=== PATIENT | female | born 1980 | race Caucasian/White ===

== ENCOUNTER 2023-04-27 15:33 | Outpatient (CLI) | payer BC, SELFPAY | END 2023-04-27 15:34 | disposition home or self-care (01) | LOC: NFLDREF 05-10 07:10 | PROVIDERS: PCP Nurse Practitioner Family; Referring Provider Nurse Practitioner Family; Visit Provider Nurse Practitioner Family | DX: E55.9 Vitamin D deficiency, unspecified (principal); R20.2 Paresthesia of skin; Z13.0 Encounter for screening for diseases of the blood and blood-forming organs and certain disorders involving the immune mechanism | CPT/HCPCS: 80053; 82306; 84443; 85025; 85651; 86039; 86140; 86618; 86812 ==

== ENCOUNTER 2023-05-17 06:29 | Outpatient (CLI) | payer BC, SELFPAY ==
--- NOTE | 2023-05-17 08:02 | W.ANESCHARGE ---
Anesthesia Charges Start Date/Time Anesthesia Start Date: 05/17/23 Anesthesia Start Time: 07:30 Stop Date/Time Anesthesia Stop Date: 05/17/23 Anesthesia Stop Time: 08:00
== END 2023-05-17 06:30 | disposition home or self-care (01) ==
LOC: OP CLINIC 06:29
PROVIDERS: PCP Nurse Practitioner Family; Visit Provider Surgery
DX: Z12.11 Encounter for screening for malignant neoplasm of colon (principal); K57.30 Diverticulosis of large intestine without perforation or abscess without bleeding; Z80.0 Family history of malignant neoplasm of digestive organs
CPT/HCPCS: 00812; 45378; J2704

== ENCOUNTER 2023-07-19 13:08 | Outpatient (CLI) | payer BC, SELFPAY ==
--- NOTE | 2023-07-19 13:20 | CRLHL7_ITS ---
For Patients: As a result of the Century Cures Act, medical imaging exams and procedure reports are released immediately into your electronic medical record. You may view this report before your referring provider. If you have questions, please contact your health care provider. BILATERAL SCREENING MAMMOGRAM WITH COMPUTER-AIDED DETECTION AND TOMOSYNTHESIS TECHNIQUE: CC and MLO views were obtained. These mammographic images have been obtained using full-field digital technique. These mammographic images were interpreted with the benefit of computer-aided detection. Breast Tomosynthesis was used in this interpretation. COMPARISON FILM: 04/21/21, 07/22/18. FINDINGS: The breasts are extremely dense, which lowers the sensitivity of mammography. IMPRESSION: There is no radiographic evidence for malignancy. ASSESSMENT: BI-RADS Category 1: Negative RECOMMENDATION: Routine screening mammogram in 1 year. A lay language report of this examination will be provided to the patient. Forrest Tomas M.D. Diagnostic Radiologist [email or web address] SP/Dictated by: Forrest Tomas MD @ 07/20/2023 8:58:00 AM (Electronically Signed)
== END 2023-07-19 13:09 | disposition home or self-care (01) ==
LOC: MAMMO 13:08
PROVIDERS: PCP Nurse Practitioner Family; Visit Provider Nurse Practitioner Family
DX: Z12.31 Encounter for screening mammogram for malignant neoplasm of breast (principal); R92.2 Inconclusive mammogram
CPT/HCPCS: 77063; 77067

== ENCOUNTER 2024-01-17 10:23 | Outpatient (CLI) | payer BC, SELFPAY | END 2024-01-17 10:24 | disposition home or self-care (01) | LOC: KYNREF 10:24 | PROVIDERS: PCP Nurse Practitioner Family; Visit Provider Nurse Practitioner Family | DX: R63.5 Abnormal weight gain (principal) | CPT/HCPCS: 84443 ==

== ENCOUNTER 2024-03-06 12:54 | Outpatient (CLI) | payer BC, SELFPAY ==
--- NOTE | 2024-03-06 13:00 | CRLHL7_ITS ---
For Patients: As a result of the Century Cures Act, medical imaging exams and procedure reports are released immediately into your electronic medical record. You may view this report before your referring provider. If you have questions, please contact your health care provider. BILATERAL BREAST MRI WITHOUT AND WITH GADOLINIUM CLINICAL HISTORY: At increased risk for breast cancer due to family history of breast cancer in her mother diagnosed at age 43. Personal history of benign MRI guided RIGHT breast biopsy in 2021. No current breast related concerns. INDICATION FOR BREAST MRI: High-risk screening breast MRI. COMPARISON STUDIES: Breast MRI 05/14/2021. Outside images from MRI guided right breast biopsy and post biopsy mammogram 05/28/2021. Screening mammograms 07/19/2023, 04/21/2021 and 07/22/2018. CONTRAST: 17 mL Clariscan. TECHNIQUE: The patient was positioned prone using a breast coil. Multiple imaging sequences were obtained using 1-1.5 mm thick slices with no gap. The image sequences include T2-weighted STIR in the axial plane, T1-weighted nonfat-saturated gradient echo in the axial plane, pre- and post-contrast T1-weighted FLASH 3D with fat suppression in the axial plane, and T1-weighted FLASH high resolution 3D with fat suppression in the sagittal plane. Image post-processing was performed on a [employer] workstation. Complex 3D rendering including maximum intensity projections (MIPS) and volumetric renderings were obtained to optimize visualization of the extent of pathology and relationship to the nipple, skin, and chest wall. This aids in determining feasibility of breast conservation surgery. Subtraction, multiplanar reconstruction, mean curve determination, and angiogenesis mapping were also performed. The study was technically adequate. FINDINGS: Amount of Fibroglandular Tissue: Heterogeneous fibroglandular tissue. Breast Background Enhancement: Mild. RIGHT Breast: In the slightly inner retroareolar breast at 3 o`clock, 2 cm posterior to the nipple, there is a 0.9 x 0.8 x 1 cm oval mass with irregular margins demonstrating fast initial and washout delayed phase enhancement. There is clumped non-mass enhancement along the posterior aspect of the mass spanning an additional 1.2 cm. There is artifact from a biopsy marking clip anterior to (but not within) the mass from the prior MRI guided biopsy. LEFT Breast: There is no suspicious mass or non-mass enhancement. Lymph Nodes: No abnormal morphology lymph nodes. IMPRESSIONS AND RECOMMENDATIONS: 1. There is a suspicious 1 cm mass at 3 o`clock in the RIGHT breast. Non-mass enhancement extends posteriorly for 1.2 cm. Targeted RIGHT breast ultrasound and possible ultrasound-guided biopsy are recommended. If there is no sonographic correlate for the mass then MRI guided biopsy would be recommended. 2. No MRI evidence of malignancy in the LEFT breast. 3. No abnormal morphology lymph nodes. BI-RADS Category 4: Suspicious Dictated by Morena Gee MD @ 03/07/2024 11:51:01 AM /sp SP/Dictated by: Morena Gee MD @ 03/07/2024 12:59:00 PM (Electronically Signed)
== END 2024-03-06 12:55 | disposition home or self-care (01) ==
LOC: MRI 12:56
PROVIDERS: PCP Nurse Practitioner Family; Visit Provider Nurse Practitioner Family
DX: Z12.39 Encounter for other screening for malignant neoplasm of breast (principal); N63.10 Unspecified lump in the right breast, unspecified quadrant; Z80.3 Family history of malignant neoplasm of breast
CPT/HCPCS: 77049; A9575

== ENCOUNTER 2024-03-15 09:54 | Outpatient (CLI) | payer BC, SELFPAY ==
--- NOTE | 2024-03-15 10:15 | CRLHL7_ITS ---
For Patients: As a result of the Century Cures Act, medical imaging exams and procedure reports are released immediately into your electronic medical record. You may view this report before your referring provider. If you have questions, please contact your health care provider. ULTRASOUND-GUIDED BREAST BIOPSY AND POST-BIOPSY DIGITAL MAMMOGRAM FOR BIOPSY MARKER PLACEMENT CLINICAL HISTORY: Indeterminate solid nodule. COMPARISON STUDIES: Breast MRI 03/06/2024. TECHNIQUE: Real-time ultrasound with image documentation was used for targeting the breast lesion. Core biopsy specimens were obtained using an automated gun with a 16-gauge biopsy needle. Post-biopsy CC and ML digital mammograms were obtained to document position of the biopsy marker. CONSENT and TIME OUT: The procedure, risks, and alternatives were explained to the patient and a consent was signed. [place] Protocol was followed including pre-procedure verification that relevant information/documentation was available, reviewed and properly matched to the patient; consent accurate and complete; and equipment and supplies available. Time Out was conducted just prior to starting procedure to verify the four required elements: patient identity, correct side/site marked (if applicable), procedure, relevant images/results properly labeled and displayed (if applicable). PROCEDURE: The patient was positioned supine on the ultrasound table. The breast was prepped with ChloraPrep. 6 cc of 1 percent lidocaine used for local anesthesia. Core samples were obtained. A sterile metal biopsy clip was placed percutaneously to elsie the lesion position within the breast. The specimens were placed in 10% formalin and sent to the pathology department. Pressure was held on the biopsy site until all bleeding subsided. The skin incision was closed with Steri-Strips. An ice pack was positioned over the biopsy site. Post-biopsy instructions were reviewed with the patient, and a written copy was given to her. LATERALITY: RIGHT breast. LESION: Solid heterogeneous nodule containing a biopsy clip in the anterior aspect measuring 11 x 9 x 11 millimeters at 3 o`clock 2 cm from the nipple. SUSPICION FOR MALIGNANCY: Low. NUMBER OF SAMPLES: 5. BIOPSY CLIP SHAPE: Oval. PROXIMITY OF CLIP TO TARGET: Within the lesion centrally. IMPRESSION: Ultrasound-guided breast biopsy. When the pathology report is available, an addendum to this report will be made. ACR not applicable Dictated by Forrest Tomas MD @ 03/15/2024 12:00:25 PM CRL/juanito DW/Dictated by: Forrest Tomas MD @ 03/15/2024 12:00:00 PM (Electronically Signed)
== END 2024-03-15 09:55 | disposition home or self-care (01) ==
LOC: US 09:55
PROVIDERS: PCP Nurse Practitioner Family; Visit Provider Nurse Practitioner Family
DX: N63.10 Unspecified lump in the right breast, unspecified quadrant (principal); D24.1 Benign neoplasm of right breast; R92.8 Other abnormal and inconclusive findings on diagnostic imaging of breast
CPT/HCPCS: 19083; 77065; 88305; 88341; 88342; A4648; A4649

== ENCOUNTER 2024-04-10 08:07 | Outpatient (CLI) | payer BC, SELFPAY | END 2024-04-10 08:08 | disposition home or self-care (01) | PROVIDERS: PCP Nurse Practitioner Family; Visit Provider Nurse Practitioner Family | DX: Z13.228 Encounter for screening for other metabolic disorders (principal); Z13.0 Encounter for screening for diseases of the blood and blood-forming organs and certain disorders involving the immune mechanism; Z13.21 Encounter for screening for nutritional disorder | CPT/HCPCS: 80053; 82607; 85025 ==

== ENCOUNTER 2024-04-24 08:15 | Outpatient (CLI) | payer BC, SELFPAY ==
[2024-04-24 13:44] LABS: Glucose 2 Hour 94 mg/dl (70-155)
[2024-04-24 13:44] LABS: Glucose Fasting 97 mg/dl (70-95)
[2024-04-27 13:34] LABS: Vitamin B6 (Pyridoxal 5-Phos) 73.3 nmol/L (20.0-125.0)
[2024-04-27 21:21] LABS: Albumin 4.21 g/dL (3.75-5.01); Alpha 1 Globulin 0.23 g/dL (0.19-0.46); Immunofixation IFE Done; Immunoglobulin A 209 mg/dL (68-408); Immunoglobulin G 1073 mg/dL (768-1632); Immunoglobulin M 68 mg/dL (35-263); Kappa Qnt Free Light Chains 18.03 mg/L (3.30-19.40); Kappa/Lambda Light Chain Ratio 1.08 (0.26-1.65); Lambda Qnt Free Light Chains 16.74 mg/L (5.71-26.30); Total Protein, Serum 6.9 g/dL (6.3-8.2)
== END 2024-04-24 08:16 | disposition home or self-care (01) ==
LOC: NPINS 08:16
PROVIDERS: PCP Nurse Practitioner Family; Visit Provider Psychiatry & Neurology Neurology
DX: M79.2 Neuralgia and neuritis, unspecified (principal); G64 Other disorders of peripheral nervous system
CPT/HCPCS: 82784; 82947; 82950; 83520; 84155; 84165; 84207; 86334

== ENCOUNTER 2024-04-27 08:07 | Day surgery (SDC) | payer BC, SELFPAY ==
--- NOTE | 2024-04-27 | CRLHL7_ITS ---
For Patients: As a result of the Cures Act, medical imaging exams and procedure reports are released immediately into your electronic medical record. You may view this report before your referring provider. If you have questions, please contact your health care provider. BREAST WIRE LOCALIZATION USING ULTRASOUND GUIDANCE CLINICAL HISTORY: RIGHT breast papilloma. LATERALITY: RIGHT breast. LESION: Heterogeneous nodule 3 o`clock 2 cm from the nipple measuring 11 x 9 x 11 millimeters. LOCALIZATION WIRE: [place] hookwire. TECHNIQUE: The localization wire was placed using real-time ultrasound guidance with image documentation. Cranial-caudal and medial-lateral digital mammograms were obtained after localization wire placement. CONSENT and TIME OUT: The procedure, risks, and alternatives were explained to the patient and a consent was signed. [place] Protocol was followed including pre-procedure verification that relevant information/documentation was available, reviewed and properly matched to the patient; consent accurate and complete; and equipment and supplies available. Time Out was conducted just prior to starting procedure to verify the four required elements: patient identity, correct side/site marked (if applicable), procedure, relevant images/results properly labeled and displayed (if applicable). PROCEDURE: The skin was prepped with Betadine and 3 cc of 1% lidocaine was injected for local anesthesia. The localization wire was placed within or near the targeted breast lesion using ultrasound guidance. The patient tolerated the procedure well. PROXIMITY OF WIRE TO LESION: The wire is present within the lesion adjacent to the clip. IMPRESSION: Successful breast wire localization. ACR not applicable Dictated by Forrest Tomas MD @ 04/27/2024 11:06:50 AM jj/Dictated by: Forrest Tomas MD @ 04/27/2024 11:06:00 AM (Electronically Signed)
[2024-04-27 08:23] VITALS: BP 108/61; PULSE 66; RESP 16; TEMP 36.8; O2SAT 96; BMI 29.0
[2024-04-27 08:35] LABS: Ur HCG Qualitative* Negative (Negative)
[2024-04-27] MEDS: SODIUM CHLORIDE 0.9 % (FLUSH) 10 ML SYRINGE IVF (09:00)
[2024-04-27] MEDS: 0.9 % SODIUM CHLORIDE 500 ML 500 ML 100 ML IV (09:15)
--- NOTE | 2024-04-27 10:00 | CRLHL7_ITS ---
For Patients: As a result of the Century Cures Act, medical imaging exams and procedure reports are released immediately into your electronic medical record. You may view this report before your referring provider. If you have questions, please contact your health care provider. SEE ULTRASOUND-GUIDED RIGHT BREAST WIRE LOCALIZATION PERFORMED SAME DAY CRL:[email or web address] stern/Dictated by: Forrest Tomas MD @ 04/27/2024 11:06:00 AM (Electronically Signed)
[2024-04-27] MEDS: CEFAZOLIN 2 GM INJ IVP (10:26)
--- NOTE | 2024-04-27 10:30 | CRLHL7_ITS ---
For Patients: As a result of the Cures Act, medical imaging exams and procedure reports are released immediately into your electronic medical record. You may view this report before your referring provider. If you have questions, please contact your health care provider. RIGHT BREAST SPECIMEN RADIOGRAPH CLINICAL HISTORY: Papilloma. COMPARISON: MRI 03/06/2024. FINDINGS: Specimen contains the biopsied nodule along with both biopsy clips along with the localization wire. IMPRESSION: Specimen contains the biopsied mass, both biopsy clips and the localization wire. ACR not applicable Dictated by Forrest Tomas MD @ 04/27/2024 11:19:08 AM jj/Dictated by: Forrest Tomas MD @ 04/27/2024 11:19:00 AM (Electronically Signed)
[2024-04-27] MEDS: BUPIVACAINE 0.25% 30 ML INJECTION (10:43)
[2024-04-27] MEDS: LIDOCAINE 1% MDV 20 ML INJECTION (10:43)
[2024-04-27] MEDS: ACETAMINOPHEN 325 MG TABLET 650 MG PO (11:10)
--- NOTE | 2024-04-27 11:10 | W.PM.H&PU ---
History & Physical Update History & Physical Update H&P Reviewed and patient assessed: No changes noted
[2024-04-27 11:15] VITALS: BP 100/63; PULSE 78; RESP 16; TEMP 36.2; O2SAT 94
--- NOTE | 2024-04-27 11:22 | P.GSOP_ITS ---
Operative Note Date of procedure: 04/27/24 Pre-op diagnosis: intraductal papilloma, right breast Post-op diagnosis: same Type of Procedure: excisional biopsy, right breast Indications: patient is a 44-year-old female who presented with a mass of the right breast. Biopsy was performed with evidence of intraductal papilloma. Given the patient's strong family history recommendations were for surgical excision. Risks and benefits of operative intervention were discussed at length with the patient. Risks included but was not limited to: Bleeding, infection, risk of damage to surrounding structures, possible need for additional procedures and postoperative complications such as pneumonia, pulmonary emboli or DE. All questions and concerns were addressed with the patient agreeing to proceed. Procedure Description: After discussing the risks and benefits of the procedure, the patient signed informed consent.?Patient was brought to Radiology for wire localization. The operative site was marked and the patient was brought to the operating room and placed on the operating table in supine position.? Care was taken to pad the patient's pressure points.?? The patient was then given sedation by anesthesia.?? The operative site was then prepped and draped in the usual sterile fashion.? A time-out was then performed. Local anesthesia was infiltrated into a curvilinear incision in the 6 O'clock position at the location of the tip of the wire. Using electrocautery, the segme nt of breast tissue containing the tip of the wire was excised. This was sent for evaluation. Radiology imaging confirmed that the clip and wire were present within the specimen. The wound was irrigated and all irrigant suctioned from the wound. The wound was then closed in layers using absorbable suture, and Dermbond was placed. The patient was awakened without incident and taken to PACU in stable condition. Sponge, needle and instrument counts were correct x3 at the termination of the case. Findings: wire localization of right breast mass. Anesthesia: MAC and local Surgeon: Kimberly Jain MD Estimated blood loss (mL): 10 Additional Specimen Information: right breast mass Condition: stable Disposition: same day
[2024-04-27 11:30] VITALS: BP 104/43; PULSE 70; RESP 16; O2SAT 97
[2024-04-27 11:45] VITALS: BP 105/48; PULSE 61; RESP 16; O2SAT 99
--- NOTE | 2024-04-27 11:53 | P.ANES_ITS ---
Anesthesia Charges Start Date/Time Anesthesia Start Date: 04/27/24 Anesthesia Start Time: 10:23 Stop Date/Time Anesthesia Stop Date: 04/27/24 Anesthesia Stop Time: 11:20 Coding CPT Codes CPT Codes: ANESTH SKIN EXT/PER/ATRUNK - 34579 ([id number]) P2 - PATIENT W/MILD SYST DISEASE, QZ - GEAR SETTER SVC W/O BEHAVIORAL PSYCHOLOGIST BY
--- NOTE | 2024-04-27 11:53 | W.ANESCHARGE ---
Anesthesia Charges Start Date/Time Anesthesia Start Date: 04/27/24 Anesthesia Start Time: 10:23 Stop Date/Time Anesthesia Stop Date: 04/27/24 Anesthesia Stop Time: 11:20 Coding CPT Codes CPT Codes: ANESTH SKIN EXT/PER/ATRUNK - 48971 ([id number]) P2 - PATIENT W/MILD SYST DISEASE, QZ - MANAGEMENT TRAINEE SVC W/O CONSERVATION WORKER BY
[2024-04-27 12:00] VITALS: BP 106/50; PULSE 60; RESP 16; O2SAT 99
== END 2024-04-27 12:50 | disposition home or self-care (01) ==
PROVIDERS: Anesthesiology; PCP Nurse Practitioner Family; Visit Provider Surgery
PROC: (CPT 19125; principal; 2024-04-27 10:30)
PROC: (CPT 19125; 2024-04-27 10:30)
DX: D24.1 Benign neoplasm of right breast (principal)
CPT/HCPCS: 19125; 00400; 19285; 76942; 77065; 81025; 88305; J2003; A9270; C1769; J0665; J0690; J1100; J1885; J2250; J2405; J2704; J3010; J7030

== ENCOUNTER 2024-05-22 07:53 | Outpatient (CLI) | payer BC, SELFPAY ==
[2024-05-22 14:49] LABS: Glucose* 95 mg/dL (60-115)
== END 2024-05-22 07:54 | disposition home or self-care (01) ==
LOC: NPINS 07:54
PROVIDERS: PCP Nurse Practitioner Family; Visit Provider Psychiatry & Neurology Neurology
DX: M79.2 Neuralgia and neuritis, unspecified (principal); G64 Other disorders of peripheral nervous system
CPT/HCPCS: 82947

== ENCOUNTER 2024-10-23 08:53 | Outpatient (CLI) | payer BC, SELFPAY ==
--- NOTE | 2024-10-23 09:15 | CRLHL7_ITS ---
For Patients: As a result of the Century Cures Act, medical imaging exams and procedure reports are released immediately into your electronic medical record. You may view this report before your referring provider. If you have questions, please contact your health care provider. INDICATION: BLATERAL SCREENING MAMMOGRAM, ASYMPTOMATIC 44 Y/O FEMALE COMPARISON: 03/15/2024, 07/19/2023, 05/14/2021 TECHNIQUE: Digital mammogram in CC and MLO projections including computer-aided detection (CAD) and tomosynthesis. BREAST COMPOSITION: The breasts are heterogeneously dense, which may obscure small masses. FINDINGS: No suspicious findings. ASSESSMENT: BI-RADS 2 Benign RECOMMENDATION: Annual screening mammogram. A lay language report of this examination will be provided to the patient. Dictated by: Forrest Tomas MD @ 10/23/2024 11:05:03 (Electronically Signed)
== END 2024-10-23 08:54 | disposition home or self-care (01) ==
LOC: MAMMO 08:53
PROVIDERS: PCP Nurse Practitioner Family; Visit Provider Surgery
DX: Z12.31 Encounter for screening mammogram for malignant neoplasm of breast (principal); R92.333 Mammographic heterogeneous density, bilateral breasts
CPT/HCPCS: 77063; 77067